=== PATIENT | female | born 1945 | race Caucasian/White ===

== ENCOUNTER 2019-09-15 08:19 | Day surgery (SDC) | payer OTHER, MEDICARE ==
[~2019-09-15] VITALS: Ht 152.4 cm; Wt 72.6 kg
--- NOTE | ~2019-09-15 | O ---
[facility] [place] [address] OPERATIVE REPORT Name: FABIAN WORKMAN Room #: DEP [facility].#: [id number] Admission: 09/15/19 Attend Phys: Yasmany Dugan MD Discharge: 09/15/19 Date of : 49 Report #: [id number] THIS REPORT FOR: cc: Laurent Dick MD,Laurent Dugan,Yasmany Hogue MD ~ CC: Laurent Dugan DATE OF SERVICE: 09/15/2019 PREOPERATIVE DIAGNOSES: 1. 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 2. Severe anxiety disorder. POSTOPERATIVE DIAGNOSES: 1. 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 2. Severe anxiety disorder. PROCEDURE PERFORMED: Left temporal artery biopsy. ANESTHESIA: IV sedation due to her anxiety disorder plus local 0.25% Marcaine, mixed with 1% lidocaine with epinephrine. SURGEON: Yasmany Dugan MD COMPLICATIONS: None. BLOOD LOSS: 2 mL. DESCRIPTION OF PROCEDURE: With the patient under sedation, the course of the left temporal artery was identified with preoperative ultrasound. Marcaine was placed over the course of the artery. The small amount of hair was trimmed from the area. This area was then prepped with ChloraPrep, toweled and draped in sterile fashion. Timeout was performed. The patient did not need any preoperative IV antibiotic. The local anesthetic was used to anesthetize the skin and subcutaneous tissue, I started at length about a 2 cm incision. The patient's artery was small and difficult to find; however, eventually I was able to locate it. I was actually a little bit more posterior, little bit deeper to the artery once I found the artery and I traced the artery back down towards the ear. The incision was slightly enlarged that direction. The artery was also followed distally. The artery was isolated. A vessel loop was placed around it. Small little branches were clipped off. The rest of this was cauterized. The artery was followed more distally where it bifurcated. At this point, the dissection was ended and there was a good 5 cm segment. Both distal branches were clipped and the artery was then sharply cut off of there and also the [facility] [address] [place] [address] OPERATIVE REPORT Name: FABIAN WORKMAN Room #: DEP [facility].#: [id number] Admission: 09/15/19 Attend Phys: Yasmany Dugan MD Discharge: 09/15/19 Date of : 49 Report #: [id number] proximal was clipped and then the clips without difficulty and then the artery was cut off approximately. Specimen was placed in formalin. Hemostasis was obtained. The subcutaneous tissue was brought together with 4-0 PDS. Skin was closed with 5-0 PDS running subcuticular fashion. Dermabond was used. The patient was taken to recovery and tolerated the procedure well. By: [id number] Yasmany Dugan MD /marino
[~2019-09-15 08:19] MED LIST: ASPIR-TRIN325 MG PO; CLARITIN10 MG PO; LEVOTHYROXIN0.125 M1 PO; LOSARTAN POTAS100 MG PO; OMEPRAZOLE 20 M20 M1 PO; ORENCIA 25250 MG/VIA IV; SIMVASTATIN40 MG PO; SULFAZINE500 MG PO; TRAMADOL 50 MG50 MG PO; UNICOMPLEX M TA1 TA1 PO; VITAMIN D31250 MC1 PO; VITAMIN D32000 UNI1 PO; [UNRECOGNIZED DRUG - OTHER] PO
--- NOTE | 2019-09-15 09:27 | EKG ---
[facility] [place] [address] ELECTROCARDIOGRAM REPORT Name: FABIAN WORKMAN Room #: [address] [place] [address] M.R.#: [id number] Admission: 09/15/19 Attend Phys: Yasmany Dugan MD Discharge: Date of : 49 Report #: [id number] THIS REPORT FOR: cc: Laurent Dick MD, Charles MD Lundgren,Julio Andrews MD [facility] ~ THIS REPORT FOR: //name// [facility] Test Date: 2019-09-15 Test Time: 08:57:18 Pat Name: FABIAN WORKMAN Department: Room: [facility] Gender: F Principal Network Engineer: thao : 1945 Requested By: Yasmany Dugan Order Number: [id number] MD: Julio Claudio Measurements Intervals Van Rate: 101 P: 57 VA: 130 QRS: -4 QRSD: 95 T: 44 QT: 358 QTc: 465 Interpretive Statements Sinus tachycardia Abnormal R-wave progression, early transition Inferior infarct, old Baseline wander in lead(s) V6 Compared to ECG 06/13/2014 07:22:43 No significant change was found Electronically Signed On 09-15-2019 9:26:09 CDT by Julio Claudio [email or web address] <ELECTRONICALLY SIGNED> By: Julio Claudio MD, FAC 09/15/19 0926 [id number] Julio Claudio MD, FAC /EPI
[2019-09-15 10:20] VITALS: BP 142/63
[2019-09-15 12:21] VITALS: BP 142/63
--- NOTE | 2019-09-16 16:07 | PATH ---
[facility] [address] [place] [address] PATHOLOGY RPT PROCEDURE Name: FABIAN VILLANUEVA Room #: DEP [facility] M.R.#: [id number] Admission: 09/15/19 Date of : 49 Discharge: 09/15/19 Report #: [id number] Path Case #: [id number] [facility] Accession Number: [id number] . 01 Material submitted: . artery - LEFT TEMPORAL ARTERY BIOPSY. Modifiers: left, temporal . 01 Clinical history: . Swollen optic nerve. . 02 Diagnosis: Artery, left temporal artery, biopsy: - Mild calcific sclerosis present. - Negative for inflammation. (IUV:pit 09/16/2019) QTP 09/16/2019 1510 Local . 02 Comment: Findings are communicated to Dr. Yasmany Galindo in the afternoon of 09/16/2019. . (IUV:pit 09/16/2019) . 02 Electronically signed: . Ct Bhatia MD, Pathologist NPI- [id number] . 01 Gross description: . Received in formalin labeled "Fabian Villanueva, left temporal artery biopsy" is a portion of rendon-white vascular tissue measuring 4.6 cm in length and 0.2 cm in diameter. The specimen is submitted without sectioning in cassette A1 per temporal artery protocol. [place] [place] [facility] 09/15/2019 1728 Local . 02 Pathologist provided ICD-10: I70.8 . 02 CPT . 127423 Specimen Comment: A courtesy copy of this report has been sent to [phone] Specimen Comment: [phone] Specimen Comment: Report sent to DR GALINDO / DR IRELAND Performed at: [address] [id number] MD Spike Alanis MD Phone: [phone] Performed at: [address] [address] PATHOLOGY RPT PROCEDURE Name: FABIAN VILLANUEVA Room #: DEP [facility].#: [id number] Admission: 09/15/19 Date of : 49 Discharge: 09/15/19 Report #: [id number] Path Case #: [id number] [address] [id number] MD Ct Bhatia MD Phone: [phone]
== END 2019-09-15 12:45 | disposition home or self-care (01) ==
LOC: OR 08:19 → TBA 08:20 → OR 09:39
DX: H54.62 Unqualified visual loss, left eye, normal vision right eye (principal); I70.8 Atherosclerosis of other arteries; F41.9 Anxiety disorder, unspecified; H47.10 Unspecified papilledema; M06.9 Rheumatoid arthritis, unspecified; E03.9 Hypothyroidism, unspecified; E78.5 Hyperlipidemia, unspecified; I10 Essential (primary) hypertension; M19.90 Unspecified osteoarthritis, unspecified site; K21.9 Gastro-esophageal reflux disease without esophagitis; Z98.890 Other specified postprocedural states; Z98.42 Cataract extraction status, left eye; Z98.41 Cataract extraction status, right eye; Z90.49 Acquired absence of other specified parts of digestive tract; Z90.710 Acquired absence of both cervix and uterus; Z96.698 Presence of other orthopedic joint implants; Z96.652 Presence of left artificial knee joint; Z79.899 Other long term (current) drug therapy
CPT/HCPCS: 50010; 50101; 50386; 50398; 54118; 56525; 56526; 56805; 70005